=== PATIENT | male | born 1960 | race Caucasian/White ===

== ENCOUNTER 2022-06-26 04:30 | Day surgery (SDC) | payer OTHER ==
[2022-06-20 15:02] VITALS: BMI 28.1
[2022-06-26] MEDS ORDERED: MIDAZOLAM HCL 2 MG/2 ML SINGLE DOSE VIAL ONE (14:49)
[2022-06-26 15:29] VITALS: RESP 20; TEMP 98
[2022-06-26 18:04] VITALS: BP 130/70; PULSE 70
== END 2022-06-26 16:40 | disposition home or self-care (01) ==
LOC: JASU-SURG 04:30
PROVIDERS: ATTEND Urology
PROC: 0TF3XZZ Fragmentation in Right Kidney Pelvis, External Approach (ICD-10-PCS; principal; 2022-06-26 14:30)
DX: N20.0 Calculus of kidney (principal)